=== PATIENT | male | born 1970 | race Caucasian/White ===

== ENCOUNTER 2023-07-07 08:31 | Outpatient (CLI) | payer BC ==
[2023-07-07] MEDS ORDERED: Magnevist 469MG/ML 20 ML VIAL ONE (10:07)
== END 2023-07-07 08:32 | disposition home or self-care (01) ==
LOC: CSHMRI 08:31
PROVIDERS: ATTEND Urology
DX: C61 Malignant neoplasm of prostate (principal)
CPT/HCPCS: 72197